=== PATIENT | male | born 1955 | race Caucasian/White ===

== ENCOUNTER 2022-06-26 06:02 | Inpatient (IN) | payer OTHER, BC ==
[2022-06-20 16:32] VITALS: BMI 25.8
[2022-06-26] MEDS ORDERED: BUPIVACAINE HCL 100 ML ONE (07:45)
[2022-06-26] MEDS ORDERED: SUCCINYLCHOLINE CHLORIDE 200 MG/10 ML SYRINGE ONE (07:46)
[2022-06-26] MEDS ORDERED: MIDAZOLAM HCL 2 MG/2 ML SINGLE DOSE VIAL ONE ×3 (07:46→11:27)
[2022-06-26] MEDS ORDERED: PROPOFOL 40 ML ONE (07:46)
[2022-06-26] MEDS ORDERED: BUPIVACAINE LIPOSOME/PF (EXPAREL) 266 MG/20 ML VIAL ONE (07:48)
[2022-06-26] MEDS ORDERED: ACETAMINOPHEN 1000 MG/100 ML BAG IVPB ONE (08:55)
[2022-06-26] MEDS ORDERED: ONDANSETRON 4 MG/2 ML VIAL IVPUSH PRN ×2 (08:55→12:48)
[2022-06-26] MEDS ORDERED: oxyCODONE HCL 5 MG TABLET PO PRN (08:55)
[2022-06-26] MEDS ORDERED: LACTATED RINGERS SOLUTION 1,000 ML IV SCH ×2 (09:00→13:00)
[2022-06-26] MEDS ORDERED: SODIUM CHLORIDE 0.9% P/F 10 ML VIAL IJ ONE (12:27)
[2022-06-26] MEDS ORDERED: TRANEXAMIC ACID 1000 MG/10 ML VIAL ONE (12:27)
[2022-06-26] MEDS ORDERED: VANCOMYCIN 1,000 MG VIAL (RESTRICTED TO ID ONLY) ONE (12:27)
[2022-06-26] MEDS ORDERED: ceFAZolin SODIUM 1 GM VIAL ONE (12:27)
[2022-06-26] MEDS ORDERED: MAG HYDROX/AL HYDROX/SIMETH 30 ML UNIT-DOSE CUP PO PRN (12:48)
[2022-06-26] MEDS ORDERED: MAGNESIUM HYDROX 2400MG/30ML ORAL SUSPENSION 30 ML CUP PO PRN (12:48)
[2022-06-26] MEDS ORDERED: ACETAMINOPHEN INJECTION 100 ML IVPB ONE (13:35)
[2022-06-26] MEDS: oxyCODONE HCL 5 MG TABLET PO PRN ×2 (17:24→21:21)
[2022-06-26] MEDS: CEFAZOLIN SODIUM 2 GM in DEXTROSE 5%-WATER 100 ML IVPB SCH ×2 (17:28→22:09)
[2022-06-26] MEDS ORDERED: HYDROmorphone HCl 2 MG/ML VIAL IVPB ONE (19:15)
[2022-06-26] MEDS: GABAPENTIN 300 MG CAPSULE PO SCH (21:15)
[2022-06-26] MEDS: CELECOXIB 200 MG CAPSULE PO SCH (21:15)
[2022-06-26] MEDS: SENNOSIDES/DOCUSATE COMBO (SENNA PLUS) TABLET (UD) PO SCH (21:16)
[2022-06-26] MEDS: ASPIRIN COATED 81 MG TABLET.EC PO SCH (21:16)
[2022-06-27] MEDS: oxyCODONE HCL 5 MG TABLET PO PRN ×3 (01:14→21:17)
[2022-06-27] MEDS: CEFAZOLIN SODIUM 2 GM in DEXTROSE 5%-WATER 100 ML IVPB SCH (04:00)
[2022-06-27] MEDS ORDERED: HYDROmorphone HCl 2 MG/ML VIAL ONE (06:28)
[2022-06-27] MEDS ORDERED: HYDROmorphone HCl 2 MG/ML VIAL IVPB ONE (06:30)
[2022-06-27 08:31] LABS: CALCIUM 8.8 mg/dl (8.5-10)
[2022-06-27 08:36] LABS: HEMATOCRIT 40.7 % (35.4-49); HEMOGLOBIN 13.7 G/dL (11.7-16.9); MCH 33.2 pg (25.7-33.7); MCHC 33.7 g/dl (32.0-35.9); MEAN CELL VOLUME 98.3 fl (80-96); MEAN PLT VOLUME 9.4 fl (7.5-11.1); PLATELET COUNT 166.6 10^3/uL (134-434); RBC 4.14 10^6/uL (4.00-5.60); RDW 13.4 % (11.9-15.9); WHITE BLOOD COUNT 10.1 10^3/uL (4.0-10.8)
[2022-06-27 09:34] LABS: HEMATOCRIT 40.3 % (35.4-49); HEMOGLOBIN 13.8 G/dL (11.7-16.9); MCH 33.6 pg (25.7-33.7); MCHC 34.3 g/dl (32.0-35.9); MEAN CELL VOLUME 98.1 fl (80-96); MEAN PLT VOLUME 9.4 fl (7.5-11.1); PLATELET COUNT 155.5 10^3/uL (134-434); RBC 4.11 10^6/uL (4.00-5.60); RDW 13.8 % (11.9-15.9)
[2022-06-27 09:36] LABS: ALBUMIN 3.5 g/dl (3.4-5.0); CALCIUM 8.9 mg/dl (8.5-10); TOT PROT 6.6 g/dl (6.4-8.2)
[2022-06-27] MEDS ORDERED: PATIENT'S OWN MEDICATION (NON-FORMULARY) (Omeprazole [Omeprazole] 20 MG Tab.Rap.Dr) PO SCH (10:00)
[2022-06-27] MEDS: GABAPENTIN 300 MG CAPSULE PO SCH ×2 (10:42→21:18)
[2022-06-27] MEDS: SENNOSIDES/DOCUSATE COMBO (SENNA PLUS) TABLET (UD) PO SCH ×2 (10:42→21:18)
[2022-06-27] MEDS: CELECOXIB 200 MG CAPSULE PO SCH ×2 (10:42→21:18)
[2022-06-27] MEDS: ASPIRIN COATED 81 MG TABLET.EC PO SCH ×2 (10:42→21:18)
[2022-06-27] MEDS: PANTOPRAZOLE 40 MG TABLET PO SCH (10:42)
[2022-06-27 10:57] LABS: PLATELET ESTIMATE ADEQUATE
[2022-06-27] MEDS ORDERED: ROSUVASTATIN CA 20 MG TABLET PO SCH (22:00)
[2022-06-28] MEDS: oxyCODONE HCL 5 MG TABLET PO PRN (08:18)
[2022-06-28 08:22] LABS: ALBUMIN 3.3 g/dl (3.4-5.0); BILIRUBIN,TOTAL 1.3 mg/dl (0.2-1); CALCIUM 8.8 mg/dl (8.5-10); CREATININE 1.2 mg/dl (0.55-1.3); TOT PROT 6.5 g/dl (6.4-8.2)
[2022-06-28 09:25] LABS: BASO % 0.2 % (0-2.0); EOS % 1.2 % (0-4.5); HEMATOCRIT 39.3 % (35.4-49); HEMOGLOBIN 13.3 GM/dL (11.7-16.9); LYMPH % 12.9 % (8-40); MCHC 33.9 g/dl (32.0-35.9); MEAN CELL VOLUME 97.3 fl (80-96); MEAN PLT VOLUME 9.3 fl (7.5-11.1); MONO % 13.7 % (3.8-10.2); PLATELET COUNT 149 10^3/uL (134-434); RBC 4.04 M/mm3 (4.00-5.60); RDW 13.6 % (11.9-15.9); WHITE BLOOD COUNT 8.3 K/mm3 (4.0-10.0)
[2022-06-28 09:33] VITALS: BP 125/73; PULSE 99; RESP 17; TEMP 98.6
[2022-06-28] MEDS: ASPIRIN COATED 81 MG TABLET.EC PO SCH (10:08)
[2022-06-28] MEDS: SENNOSIDES/DOCUSATE COMBO (SENNA PLUS) TABLET (UD) PO SCH (10:08)
[2022-06-28] MEDS: CELECOXIB 200 MG CAPSULE PO SCH (10:08)
[2022-06-28] MEDS: GABAPENTIN 300 MG CAPSULE PO SCH (10:08)
[2022-06-28] MEDS: PANTOPRAZOLE 40 MG TABLET PO SCH (10:08)
== END 2022-06-28 14:17 | disposition home or self-care (01) | DRG 470 ==
LOC: FM/S 06:02 → EDSTATUS 10:30 → FM/S 14:26
PROVIDERS: ADMIT Orthopaedic Surgery Orthopaedic Surgery of the Spine; ATTEND Orthopaedic Surgery Orthopaedic Surgery of the Spine
PROC: 0MNP0ZZ Release Left Knee Bursa and Ligament, Open Approach (ICD-10-PCS; 2022-06-26)
PROC: 0SRD0J9 Replacement of Left Knee Joint with Synthetic Substitute, Cemented, Open Approach (ICD-10-PCS; principal; 2022-06-26 10:16)
DX: M17.12 Unilateral primary osteoarthritis, left knee (principal); E87.1 Hypo-osmolality and hyponatremia; E78.5 Hyperlipidemia, unspecified; E66.9 Obesity, unspecified; K21.9 Gastro-esophageal reflux disease without esophagitis; Z68.25 Body mass index [BMI] 25.0-25.9, adult
CPT/HCPCS: 36415; 73560-TC-LT-FY; 80048; 80053; 85025; 85027; 88305-TC; 88311-TC; 94760; 97010-GP; 97116-GP; 97162-GP; C1713; C1776